=== PATIENT | female | born 1995 | race Caucasian/White ===

== ENCOUNTER 2016-11-24 20:14 | Emergency (ER) | payer OTHER ==
[~2016-11-24] VITALS: Ht 162.6 cm; Wt 63.0 kg
[~2016-11-24 20:14] MED LIST: CEPH500C; IBUP400T22; SULF1TAB7
[2016-11-24 20:17] VITALS: Ht 162.6 cm; Wt 63.0 kg
[2016-11-24] MEDS ORDERED: ALBUTEROL 0.083% (NEB) 2.5 MG/3 ML AMP HHN STA (20:40)
--- NOTE | 2016-11-24 20:40 | ERD ---
ER Documentation Chief Complaint Date/Time DATE: 11/24/16 TIME: 20:39 Chief Complaint Pt reports fever since friday, cough since friday HPI This 20-year-old female presents to emergency department with 5 day hx of cough , body aches, and ST, pt reports otalgia, that she is coughing so hard that she is vomiting ROS All systems reviewed and are negative except as per history of present illness. Medications Home Meds Reported Medications Ibuprofen* (Ibuprofen*) 400 Mg Tablet 01/02/10 Cephalexin* (Cephalexin*) 500 Mg Capsule 01/02/10 Sulfamethoxazole-Trimethoprim* (Bactrim* DS) 1 Tab Tab 01/02/10 [None] No Conflict Check 01/01/10 Allergies Allergies: Coded Allergies: No Known Allergies (Verified Allergy, Mild, 01/02/10) PMhx/Soc Medical and Surgical Hx: pt denies Medical Hx, pt denies Surgical Hx History of Surgery: No Anesthesia Reaction: No Hx Neurological Disorder: No Hx Respiratory Disorders: No Hx Cardiac Disorders: No Hx Psychiatric Problems: No Hx Miscellaneous Medical Probl: No Hx Alcohol Use: No Hx Substance Use: No Hx Tobacco Use: No Smoking Status: Never smoker Physical Exam Vitals Vital Signs Date Time Temp Pulse Resp B/P Pulse Ox O2 Delivery O2 Flow Rate FiO2 11/24/16 21:28 71 18 99 21 11/24/16 20:17 98.0 90 20 140/90 97 Vitals stable, triage notes reviewed Physical Exam Const: Well-nourished well-appearing well-hydrated 20-year-old no acute distress Head: Atraumatic Eyes: Normal Conjunctiva PERRLA, EOMI ENT: Membranes mildly erythematous nonbulging with no air-fluid level, auditory canals are clear, nasal mucosa is edematous, pharynx is erythremic, nonedematous, tonsils not visualized, uvula is midline without shift, there are no exudate, uvula rises and falls with pronation, Neck: Full range of motion..~ No meningismus. Resp: Respirations even and unlabored, diminished bases with faint expiratory wheeze Cardio: Regular rate and rhythm, no murmurs Abd: Skin: Back: Ext: Neur: Awake and alert Psych: Normal Mood and Affect Results 24 hrs Current Medications Medications (Trade) Dose Ordered Sig/Lorena Route PRN Reason Start Time Stop Time Status Last Admin Dose Admin Albuterol (Proventil 0.083% (Neb)) 2.5 mg ONCE STAT HHN 11/24/16 20:40 11/24/16 20:42 DC 11/24/16 21:25 Ipratropium [place] (Atrovent 0.02% (Neb)) 0.5 mg ONCE ONCE HHN 11/24/16 21:00 11/24/16 21:01 DC 11/24/16 21:25 Ibuprofen (Motrin) 400 mg ONCE ONCE PO 11/24/16 21:00 11/24/16 21:01 DC 11/24/16 21:09 Procedures/MDM 20-year-old female presents to emergency department with father for sore throat , cough, runny nose, fatigue, and body aches otalgia. Reports she is coughing so hard she is vomiting, she reports her patient reports that she has had symptoms for the last 5 days without improvement using hcia-dlm-bdoycts medications. Patient is able to eat and drink without visit, denies chest pain , palpitations, fever or chills. Emergency room course today includes nebulized albuterol and Atrovent, post assessment increased aeration, patient reports improvement with respiratory effort after treatment. Plan to DC home with albuterol, and Sudafed. Follow-up with primary care physician in the next 5 days if symptoms fail to improve as anticipated. Increase fluids, increase rest. Patient is cleared to go to school. Patient is stable with no new complaints during ER course, clinically there is no current evidence to suggest meningitis, sepsis, pneumonia tonsillar abscess or any other emergent condition appearing to require further evaluation or hospitalization. I feel the patient is stable for discharge at this time. I have discussed results, examination findings, the treatment plan with the patient and family present prior to discharge. Indications for emergent reevaluation, side effects of medication were also discussed. All questions were answered. Patient verbalizes understanding and agrees with plan of care. Departure Diagnosis: Primary Impression: URI (upper respiratory infection) URI type: unspecified viral URI Qualified Code: J06.9 - Viral upper respiratory tract infection Condition: Good Patient Instructions: Adult Self-Care for Colds Referrals: [facility] Additional Instructions: Thank you for for coming to [facility] for your care today. Please ask your nurse or provider if you have questions about your care today and do not leave until all your questions have been answered. Please use any medications given as directed and follow-up with your doctor (or the doctor you were referred to) in the next 2-3 days. If you do not have a primary care doctor you may follow up at the [facility] (listed below). You may also use motrin and tylenol as needed for fever and/or pain unless instructed otherwise by your provider or nurse. Indications for more urgent follow-up have been discussed, but you may return to the Emergency Department at ANY time for any worrisome or worsening symptoms. If you have abdominal pain, please know that no test or exam you received is perfect and you should follow up within 8 hours for continued pain. If you had any imaging studies today, such as an X-Ray or CT Scan, these studies will be reviewed later by a radiologist. You will be called if there are important findings that were not identified today, so make sure the contact information you provided at registration is correct. If you received any narcotic pain control medicine today, such as Vicodin, Morphine or Dilaudid, your coordination and judgment may be affected for a number of hours. Please do not drive or operate heavy machinery, and you may want someone to assist you at home. If you were given a prescription for narcotic medication, be aware that it is very addictive- use sparingly and only if necessary. MARTINA ARCE Nov 24, 2016 20:40
[2016-11-24] MEDS ORDERED: IPRATROPIUM (NEB) 0.5 MG/2.5 ML AMP HHN ONE (21:00)
[2016-11-24] MEDS ORDERED: IBUPROFEN 200 MG TAB PO ONE (21:00)
[2016-11-24] MEDS ORDERED: ALBU8.5H3 INH (22:21)
[2016-11-24] MEDS ORDERED: PSEU30TA38 PO (22:22)
[2016-11-24 22:49] VITALS: BP 120/71; PULSE 74; RESP 14; TEMP 97.9
== END 2016-11-24 22:51 | disposition home or self-care (01) ==
LOC: FTE 20:14
DX: J06.9 Acute upper respiratory infection, unspecified (principal)
CPT/HCPCS: 94664; Z7502; Z7610